=== PATIENT | male | born 1955 | race Caucasian/White ===

== ENCOUNTER 2023-11-10 11:17 | Outpatient (RCR) | payer MEDICARE, OTHER, SELFPAY | END 2023-11-10 23:59 | disposition home or self-care (01) | LOC: RPT 11:17 | PROVIDERS: FAMILY PHYSICIAN Family Medicine | DX: I89.0 Lymphedema, not elsewhere classified (principal); C7B.02 Secondary carcinoid tumors of liver | CPT/HCPCS: 97140; 97163; 97535 ==